=== PATIENT | female | born 1975 | race Caucasian/White ===

== ENCOUNTER → 2023-09-26 06:30 | Day surgery (SDC) | payer OTHER, SELFPAY | LOC: GI 06:30 | PROVIDERS: ATTENDING PHYSICIAN Internal Medicine Gastroenterology; FAMILY PHYSICIAN Family Medicine | DX: K58.1 Irritable bowel syndrome with constipation (principal); Q43.8 Other specified congenital malformations of intestine; K64.8 Other hemorrhoids; R19.4 Change in bowel habit; R13.10 Dysphagia, unspecified; Z98.84 Bariatric surgery status | CPT/HCPCS: 45378; 43239; 88305; 88342 ==

== ENCOUNTER 2024-10-18 06:17 | Day surgery (SDC) | payer OTHER, SELFPAY | END 2024-10-18 14:46 | disposition home or self-care (01) | LOC: GI 06:17 | PROVIDERS: ATTENDING PHYSICIAN Internal Medicine Gastroenterology; FAMILY PHYSICIAN Family Medicine | DX: Z12.11 Encounter for screening for malignant neoplasm of colon (principal); K64.8 Other hemorrhoids; K57.30 Diverticulosis of large intestine without perforation or abscess without bleeding; K59.39 Other megacolon; Z86.0100 Personal history of colon polyps, unspecified | CPT/HCPCS: 45380; 88305 ==